=== PATIENT | female | born 1950 | race African-American/Black ===

== ENCOUNTER 2020-01-04 19:58 | Emergency (ER) | payer OTHER, MEDICAID ==
[~2020-01-04] VITALS: Ht 162.6 cm; Wt 55.0 kg
[~2020-01-04 19:58] MED LIST: ASPIRIN; RENVELA
[2020-01-05 00:35] VITALS: BP 118/87
== END 2020-01-05 01:11 | disposition home or self-care (01) ==
LOC: ER 19:58
DX: S09.8XXA Other specified injuries of head, initial encounter (principal); V79.88XA Bus occupant (driver) (passenger) injured in other specified transport accidents, initial encounter; Y93.89 Activity, other specified; Y92.488 Other paved roadways as the place of occurrence of the external cause; N18.6 End stage renal disease; Z99.2 Dependence on renal dialysis; Z79.82 Long term (current) use of aspirin
CPT/HCPCS: 99284

== ENCOUNTER 2020-01-14 14:49 | Inpatient (IN) | payer OTHER, MEDICAID ==
[~2020-01-14] VITALS: Ht 162.6 cm; Wt 63.5 kg
[2020-01-14 15:49] LABS: BASOPHILS % 1.1 % (0.0-2.0); HEMATOCRIT. 30.1 % (36.0-48.0); HEMOGLOBIN. 9.9 g/dL (12.0-16.0); LYMPHOCYTES % 13.2 % (20.0-50.0); MEAN CORPUSCULAR HEMOGLOBIN 32.5 pg (28.0-32.0); MEAN CORPUSCULAR VOLUME 98.9 fL (81.0-99.0); MEAN PLATELET VOLUME 9.3 fl (7.4-10.4); MONOCYTES % 12.3 % (2.0-8.0); NEUTROPHILS % 71.4 % (40.0-76.0); PLATELET 233 x1000/uL (130-400); RED BLOOD CELL COUNT 3.04 mill/uL (4.2-5.4); RED CELL DISTRIBUTION WIDTH 18.9 % (11.6-14.6)
[2020-01-14 15:52] LABS: PROTHROMBIN TIME 10.6 sec (9.6-11.0)
[2020-01-14 16:37] LABS: CHLORIDE 107 mEq/L (98-107)
[2020-01-14 16:41] LABS: ETHANOL BLOOD < 10 mg/dL
[2020-01-14] MEDS ORDERED: DEXTROSE 50% WATER 50ML SYRINGE IV ONE ×3 (17:00→20:00)
[2020-01-14] MEDS ORDERED: ONDANSETRON HCL 4MG/2ML INJ IV PRN (19:45)
[2020-01-14] MEDS ORDERED: ACETAMINOPHEN 325MG TABLET PO PRN (19:45)
[2020-01-14] MEDS ORDERED: DIPHENHYDRAMINE 50MG/ML VIAL IV PRN (19:45)
[2020-01-14] MEDS ORDERED: DEXTROSE 50% WATER 50ML SYRINGE IV PRN (19:45)
[2020-01-14] MEDS: DEXT 10% WATER 1,000 ML IV SCH (20:57)
[2020-01-14] MEDS: BLOOD SUGAR DIAGNOSTIC STRIP TEST SCH (21:00)
[2020-01-14 22:20] VITALS: BP 128/84
[2020-01-15] VITALS: BP 157/80
[2020-01-15] MEDS: ACETAMINOPHEN 325MG TABLET PO PRN (00:51)
[2020-01-15 04:00] VITALS: BP 191/83
[2020-01-15 06:34] LABS: HEMATOCRIT. 24.9 % (36.0-48.0); HEMOGLOBIN. 8.4 g/dL (12.0-16.0); MEAN CORPUSCULAR HEMOGLOBIN 32.4 pg (28.0-32.0); MEAN CORPUSCULAR VOLUME 96.6 fL (81.0-99.0); MEAN PLATELET VOLUME 7.9 fl (7.4-10.4); PLATELET 146 x1000/uL (130-400); RED BLOOD CELL COUNT 2.58 mill/uL (4.2-5.4); RED CELL DISTRIBUTION WIDTH 17.1 % (11.6-14.6)
[2020-01-15] MEDS: BLOOD SUGAR DIAGNOSTIC STRIP TEST SCH ×4 (06:42→20:44)
[2020-01-15] MEDS: CLONIDINE 0.1MG TABLET PO PRN (06:45)
[2020-01-15 07:24] LABS: PHOSPHORUS 9.4 mg/dL (2.5-4.9)
[2020-01-15 08:00] VITALS: BP 155/83
[2020-01-15 12:00] VITALS: BP 145/78
[2020-01-15 16:00] VITALS: BP 112/70
[2020-01-15] MEDS: DEXT 10% WATER 1,000 ML IV SCH (17:32)
[2020-01-15 20:00] VITALS: BP 132/67
[2020-01-16] VITALS: BP 154/66
[2020-01-16 01:24] LABS: PLATELET ESTIMATE NORMAL
[2020-01-16] MEDS: ACETAMINOPHEN 325MG TABLET PO PRN (01:49)
[2020-01-16 04:00] VITALS: BP 128/70
[2020-01-16] MEDS: BLOOD SUGAR DIAGNOSTIC STRIP TEST SCH ×4 (06:06→20:36)
[2020-01-16 07:24] LABS: HEMATOCRIT. 24.1 % (36.0-48.0); HEMOGLOBIN. 8.1 g/dL (12.0-16.0); MEAN CORPUSCULAR HEMOGLOBIN 32.1 pg (28.0-32.0); MEAN CORPUSCULAR VOLUME 95.4 fL (81.0-99.0); MEAN PLATELET VOLUME 7.8 fl (7.4-10.4); PLATELET 125 x1000/uL (130-400); RED BLOOD CELL COUNT 2.53 mill/uL (4.2-5.4); RED CELL DISTRIBUTION WIDTH 17.2 % (11.6-14.6)
[2020-01-16 08:00] VITALS: BP 93/60
[2020-01-16 11:07] LABS: PLATELET ESTIMATE NORMAL
[2020-01-16 12:00] VITALS: BP 135/61
[2020-01-16] MEDS ORDERED: POTASSIUM CHLORIDE 20MEQ TABLET SR PO NR (12:45)
[2020-01-16] MEDS: DEXT 10% WATER 1,000 ML IV SCH (13:02)
[2020-01-16 16:00] VITALS: BP 115/55
[2020-01-16] MEDS: SEVELAMER CARBONATE 800 MG TABLET PO SCH (17:16)
[2020-01-16 20:00] VITALS: BP 148/52
[2020-01-16] MEDS: GABAPENTIN 100MG CAPSULE PO SCH (20:33)
[2020-01-17] VITALS (7 sets, daily range): BP systolic 114–191; BP diastolic 54–71
[2020-01-17] MEDS: SEVELAMER CARBONATE 800 MG TABLET PO SCH ×3 (05:37→16:50)
[2020-01-17] MEDS: GABAPENTIN 100MG CAPSULE PO SCH ×2 (05:37→13:04)
[2020-01-17] MEDS: BLOOD SUGAR DIAGNOSTIC STRIP TEST SCH ×4 (05:38→21:10)
[2020-01-17 06:09] LABS: HEMATOCRIT 23.8 % (36.0-48.0); HEMOGLOBIN 8.1 g/dL (12.0-16.0); MEAN CORPUSCULAR HEMOGLOBIN 32.3 pg (28.0-32.0); MEAN CORPUSCULAR VOLUME 94.7 fL (81.0-99.0); PLATELET 135 x1000/uL (130-400); RED BLOOD CELL COUNT 2.51 mill/uL (4.2-5.4); RED CELL DISTRIBUTION WIDTH 17.1 % (11.6-14.6)
[2020-01-17] MEDS: DEXT 10% WATER 1,000 ML IV SCH (08:30)
[2020-01-17] MEDS: CLONIDINE 0.1MG TABLET PO PRN (08:35)
[2020-01-17] MEDS ORDERED: IOHEXOL-300 50 ML BOTTLE IV ONE (11:58)
[2020-01-17] MEDS ORDERED: HYDRALAZINE 20MG/ML VIAL IV SCH (13:00)
== END 2020-01-17 21:20 | disposition short-term general hospital (02) | DRG 70 ==
LOC: ER 15:01 → 5WST 18:59 → EDBEDREQ 19:15 → ENRESERV 19:47
PROVIDERS: ADMIT Internal Medicine; ATTEND Internal Medicine
PROC: 5A1D70Z Performance of Urinary Filtration, Intermittent, Less than 6 Hours Per Day (ICD-10-PCS; 2020-01-15)
PROC: 05H533Z Insertion of Infusion Device into Right Subclavian Vein, Percutaneous Approach (ICD-10-PCS; principal; 2020-01-17)
PROC: B5161ZA Fluoroscopy of Right Subclavian Vein using Low Osmolar Contrast, Guidance (ICD-10-PCS; 2020-01-17)
PROC: B546ZZA Ultrasonography of Right Subclavian Vein, Guidance (ICD-10-PCS; 2020-01-17)
PROC: 5A1D70Z Performance of Urinary Filtration, Intermittent, Less than 6 Hours Per Day (ICD-10-PCS; 2020-01-17)
DX: G93.41 Metabolic encephalopathy (principal); N18.6 End stage renal disease; I12.0 Hypertensive chronic kidney disease with stage 5 chronic kidney disease or end stage renal disease; E11.649 Type 2 diabetes mellitus with hypoglycemia without coma; E78.00 Pure hypercholesterolemia, unspecified; E83.39 Other disorders of phosphorus metabolism; E87.6 Hypokalemia; F03.90 Unspecified dementia, unspecified severity, without behavioral disturbance, psychotic disturbance, mood disturbance, and anxiety; F31.9 Bipolar disorder, unspecified; E11.22 Type 2 diabetes mellitus with diabetic chronic kidney disease; E11.40 Type 2 diabetes mellitus with diabetic neuropathy, unspecified; Z99.2 Dependence on renal dialysis; Z79.82 Long term (current) use of aspirin; Z79.899 Other long term (current) drug therapy
CPT/HCPCS: 36415; 36573; 71045; 76937; 80048; 80053; 80320; 82962; 83036; 83605; 83735; 84100; 84145; 84484; 85025; 85027; 93005; 96374; 97162; 99285; C1725; J0360; Q9967; G0480

== ENCOUNTER 2020-04-11 09:46 | Emergency (ER) | payer OTHER, MEDICAID ==
[~2020-04-11] VITALS: Ht 167.6 cm; Wt 56.7 kg
[2020-04-11 10:27] LABS: HEMATOCRIT. 27.6 % (36.0-48.0); HEMOGLOBIN. 9.1 g/dL (12.0-16.0); MEAN CORPUSCULAR HEMOGLOBIN 29.2 pg (28.0-32.0); MEAN CORPUSCULAR VOLUME 88.7 fL (81.0-99.0); PLATELET 115 x1000/uL (130-400); RED BLOOD CELL COUNT 3.11 mill/uL (4.2-5.4); RED CELL DISTRIBUTION WIDTH 18.2 % (11.6-14.6)
[2020-04-11 10:30] LABS: CHLORIDE 97 mEq/L (98-107)
[2020-04-11 10:59] LABS: PLATELET ESTIMATE SLIGHTLY DECREASED
[2020-04-11] MEDS ORDERED: MORPHINE SULFATE 4 MG/ML CPJ (NOT FOR IM USE) IV ONE (14:45)
[2020-04-11 15:06] VITALS: BP 165/61
== END 2020-04-11 16:36 | disposition short-term general hospital (02) ==
LOC: ER 10:30
DX: R06.00 Dyspnea, unspecified (principal); I10 Essential (primary) hypertension; Z88.5 Allergy status to narcotic agent
CPT/HCPCS: 36415; 71045; 80053; 83880; 84484; 85025; 93005; 99285; J2270